=== PATIENT | male | born 1965 | race Caucasian/White ===

== ENCOUNTER 2022-03-12 01:21 | Inpatient (IN) ==
[2022-03-12] MEDS ORDERED: *HR* FentaNYL (PF) 100 MCG/2 ML VIAL IVP ONE (02:28)
[2022-03-12] MEDS ORDERED: Metoclopramide 10 MG/2 ML VIAL IVP ONE (02:28)
[2022-03-12 03:20] LABS: Basophils % 0.3 %; Eosinophils # 0.2 K/mcL (0.0-0.6); Eosinophils % 2.5 %; Hematocrit 38.7 % (37.5-50.1); Hemoglobin 12.7 g/dL (12.9-16.9); Immature Granulocytes % 0.3 % (0-4); Lymphocytes # 2.4 K/mcL (0.6-4.6); Lymphocytes % 29.8 %; Mean Corpuscular HGB Conc 32.8 g/dL (31.6-35.5); Mean Corpuscular Hemoglobin 27.5 pg (28.0-33.3); Mean Corpuscular Volume 83.9 fL (83.0-100.0); Mean Platelet Volume 9.8 fL (9.4-12.4); Monocytes # 0.7 K/mcL (0.0-1.3); Monocytes % 8.5 %; Neutrophils # 4.7 K/mcL (1.6-8.9); Platelet Count 313 K/mcL (140-400); Red Blood Count 4.61 M/mcL (4.19-5.50); Red Cell Distribution Width 13.3 % (11.5-14.5); Segmented Neutrophils % 58.6 %; White Blood Count 7.9 K/mcL (4.3-11.1)
[2022-03-12 03:41] LABS: Alanine Aminotransferase 31 Units/L (7-52); Albumin 4.5 g/dL (3.5-5.7); Albumin/Globulin Ratio 1.4 (1.1-2.2); Alkaline Phosphatase 95 Units/L (34-104); Amylase 71 Units/L (29-103); Aspartate Amino Transferase 28 Units/L (13-39); BUN/Creatinine Ratio 15 (6-26); Bilirubin,Direct 0.3 mg/dL (0.0-0.2); Bilirubin,Indirect 0.8 mg/dL (0.0-1.0); Bilirubin,Total 1.1 mg/dL (0.3-1.0); Blood Urea Nitrogen 16 mg/dL (6-20); Calcium 9.6 mg/dL (8.6-10.3); Carbon Dioxide 27 mEq/L (23-29); Chloride 101 mEq/L (98-107); Globulin 3.2 g/dL (2.4-3.5); Glucose 93 mg/dL (70-105); Lipase 103 Units/L (11-82); Osmolality,Calculated 283 (280-300); Potassium 3.4 mEq/L (3.5-5.1); Sodium 136 mEq/L (136-145); Total Protein 7.7 g/dL (6.4-8.9)
[2022-03-12 03:46] LABS: Bilirubin,Urine Large (Negative); Blood,Urine Negative (Negative); Clarity,Urine Clear (Clear); Color,Urine Yellow (Yellow); Glucose,Urine (UA) Normal (Normal); Ketones,Urine Negative (Negative); Leukocyte Esterase,Urine Negative (Negative); Mucus,Urine Few per lpf (None-Few); Nitrite,Urine Negative (Negative); Protein,Urine 30 mg/dL (Neg-Trace); Specific Gravity,Urine > 1.030 (1.010-1.025); WBC,Urine 0-3 per hpf (0-3)
[2022-03-12] MEDS ORDERED: Morphine Sulfate 2 MG/ML SYRINGE IVP ONE (04:51)
[2022-03-12] MEDS ORDERED: Prochlorperazine 10 MG/2 ML VIAL IVP PRN (04:51)
[2022-03-12] MEDS ORDERED: *HR* HYDROmorphone (PF) 1 MG/ML SYRINGE IVP ONE (04:53)
[2022-03-12] MEDS ORDERED: Ondansetron 4 MG/2 ML VIAL IVP PRN (04:54)
[2022-03-12 05:00] LABS: Ethanol < 10 mg/dL (Less than 10); Triglycerides 130 mg/dL (< 150)
[2022-03-12] MEDS: Ringers Solution, Lactated 1,000 ML IVC SCH ×4 (05:07→20:54)
[2022-03-12 05:12] LABS: Cholesterol 166 mg/dL (< 200); HDL Cholesterol 33 mg/dL (40-59); LDL Cholesterol,Calculated 107 mg/dL (< 100)
[2022-03-12] MEDS ORDERED: Naloxone 0.4 MG/ML INJ IVP PRN (05:13)
[2022-03-12] MEDS ORDERED: Morphine Sulfate 2 MG/ML SYRINGE IVP PRN (07:43)
[2022-03-12 08:36] LABS: % Iron Saturation 14 % (20-55); Iron 59 mcg/dL (65-175); Transferrin 304 mg/dL (203-362)
[2022-03-12 08:59] LABS: Folate 13.1 ng/mL (3.0-16.0)
[2022-03-12] MEDS: amLODIPine 5 MG TABLET PO SCH (10:00)
[2022-03-12] MEDS: Famotidine 20 MG/2 ML VIAL IVP SCH (17:39)
[2022-03-13 00:13] VITALS: O2SAT 98
[2022-03-13] MEDS: Famotidine 20 MG/2 ML VIAL IVP SCH (05:21)
[2022-03-13] MEDS: Ringers Solution, Lactated 1,000 ML IVC SCH (05:21)
[2022-03-13 08:30] VITALS: BP 179/93; PULSE 72; TEMP 98
[2022-03-13] MEDS: amLODIPine 5 MG TABLET PO SCH (08:30)
[2022-03-13 10:23] LABS: Hematocrit 39.1 % (37.5-50.1); Mean Corpuscular HGB Conc 33.2 g/dL (31.6-35.5); Mean Corpuscular Hemoglobin 28.1 pg (28.0-33.3); Mean Corpuscular Volume 84.4 fL (83.0-100.0); Mean Platelet Volume 9.8 fL (9.4-12.4); Platelet Count 280 K/mcL (140-400); Red Blood Count 4.63 M/mcL (4.19-5.50); Red Cell Distribution Width 13.4 % (11.5-14.5); White Blood Count 7.6 K/mcL (4.3-11.1)
[2022-03-13 10:44] LABS: BUN/Creatinine Ratio 8 (6-26); Blood Urea Nitrogen 8 mg/dL (6-20); Calcium 9.7 mg/dL (8.6-10.3); Carbon Dioxide 26 mEq/L (23-29); Chloride 103 mEq/L (98-107); Glucose 107 mg/dL (70-105); Osmolality,Calculated 279 (280-300); Potassium 3.8 mEq/L (3.5-5.1); Sodium 135 mEq/L (136-145)
== END 2022-03-13 12:59 | disposition home or self-care (01) | DRG 440 ==
LOC: 2ANU 01:21 → EMEROOARM 01:21 → 2ANU 05:41 → SUATTDRO 12:36
PROVIDERS: ADMIT Internal Medicine; ATTEND Pharmacist